=== PATIENT | female | born 2000 | race Caucasian/White ===

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

== ENCOUNTER → 2020-06-06 | Outpatient (CLI) | payer OTHER | LOC: LAB 10:10 | PROVIDERS: ATTEND Nurse Practitioner | DX: J03.80 Acute tonsillitis due to other specified organisms (principal); Z20.828 Contact with and (suspected) exposure to other viral communicable diseases ==